=== PATIENT | male | born 1985 | race Caucasian/White ===

== ENCOUNTER 2025-01-04 10:44 | Emergency (ER) | payer OTHER ==
[~2025-01-04] VITALS: Ht 160 cm; Wt 70.0 kg
[2025-01-04 11:15] VITALS: BP 123/80; PULSE 107; RESP 18; TEMP 98.905352; O2SAT 98
== END 2025-01-04 11:50 | disposition home or self-care (01) ==
LOC: EMS 10:47 → EDBD 10:47 → EMS 11:50
DX: R60.0 Localized edema (principal); Z88.8 Allergy status to other drugs, medicaments and biological substances; Z88.6 Allergy status to analgesic agent; Z88.1 Allergy status to other antibiotic agents
CPT/HCPCS: 99281; Z7502